=== PATIENT | female | born 1990 | race Hispanic/Latino ===

== ENCOUNTER 2021-11-16 15:00 | Inpatient (IN) | payer MEDICAID ==
[~2021-11-16] VITALS: Ht 147.3 cm; Wt 97.5 kg
[2021-11-16 15:48] LABS: BASOPHILS % (AUTO) 0.2 % (0.0-5.0); EOSINOPHILS % (AUTO) 0.7 % (0.0-8.0); HEMATOCRIT 37.4 % (36-48); LYMPHOCYTES % (AUTO) 18.1 % (21.0-51.0); MEAN CORPUSCULAR HEMOGLOBIN 27.9 pg (27.0-33.0); MEAN CORPUSCULAR HGB CONC 32.6 g/dL (32.0-36.0); MEAN CORPUSCULAR VOLUME 85.4 fL (79-99); NEUTROPHILS % (AUTO) 76.2 % (40.0-77.0); PLATELET COUNT (AUTO) 180 K/uL (130-400); RED BLOOD CELL COUNT(AUTO) 4.38 MIL/uL (4.00-5.50); RED CELL DISTRIBUTION WIDTH 15.6 % (11.0-15.5); WHITE BLOOD COUNT (AUTO) 8.8 K/uL (4.8-10.8)
[2021-11-18] MEDS ORDERED: CALDOLOR 800MG+NS 250ML 250 ML IV PRN (05:30)
[2021-11-18] MEDS ORDERED: CEFAZOLIN SODIUM 1 GM VIAL IVP PRN (05:30)
[2021-11-18] MEDS ORDERED: LACTATED RINGERS 1000ML 1,000 ML IV SCH (05:30)
[2021-11-18] MEDS ORDERED: MORPHINE PF 100MG/10ML AMP IV ONE (07:55)
[2021-11-18] MEDS ORDERED: CEFAZOLIN SODIUM 2 GM VIAL IV ONE (07:55)
[2021-11-18] MEDS ORDERED: OXYTOCIN 10 USP UNITS/ML ONE ×2 (08:16→08:34)
[2021-11-18 08:53] LABS: APPEARANCE,URINE CLOUDY (CLEAR); BILIRUBIN,URINE NEGATIVE (NEGATIVE); COLOR,URINE LIGHT-YELLOW (YELLOW); GLUCOSE, URINE (UA) NEGATIVE (NEGATIVE); KETONES,URINE NEGATIVE (NEGATIVE); LEUKOCYTE ESTERASE ,URINE 500 Leu/uL (NEGATIVE); NITRATE,URINE NEGATIVE (NEGATIVE); OCCULT BLOOD,URINE NEGATIVE (NEGATIVE); PROTEIN,URINE NEGATIVE (NEGATIVE); UROBILINOGEN,URINE 0.2 mg/dL (0.2-1.0)
[2021-11-18] MEDS ORDERED: PROMETHAZINE HCL 25 MG/ML 1ML AMPULE IM PRN (09:00)
[2021-11-18] MEDS ORDERED: MEPERIDINE-PF 75 MG/ML SYG IM PRN (09:00)
[2021-11-18] MEDS ORDERED: OXYTOCIN-LR 20 UNITS/1000 ML 1,000 ML IV PRN (09:00)
[2021-11-18] MEDS ORDERED: 0.9%NACL 10ML VIAL IVP PRN (09:00)
[2021-11-18 09:03] LABS: BACTERIA,URINE RARE /HPF (None Seen); SQUAMOUS EPITHELIAL CELL,UR MOD /HPF (0-2); YEAST,URINE BUDDING MOD /HPF (None Seen)
[2021-11-18 09:28] LABS: RAPID PLASMA REAGIN NONREACTIVE (NONREACTIVE)
[2021-11-18] MEDS ORDERED: DiphenhydrAMINE HCL 50 MG/ML VIAL IVP PRN (09:30)
[2021-11-18] MEDS ORDERED: NALOXONE HCL 0.4 MG/1 ML ML IVP PRN (09:30)
[2021-11-18] MEDS ORDERED: EPHEDRINE SULFATE 50 MG/ML AMPULE IVP PRN (09:30)
[2021-11-18] MEDS ORDERED: ONDANSETRON 4MG INJ IVP PRN (09:30)
[2021-11-18 12:11] VITALS: BP 110/56
[2021-11-18] MEDS ORDERED: PREN-196 PO (12:36)
[2021-11-18] MEDS: CALDOLOR 800MG+NS 250ML 250 ML IV SCH (16:26)
[2021-11-18 16:57] VITALS: BP 109/68
[2021-11-18 19:15] VITALS: BP 99/65
[2021-11-18] MEDS: DEXTROSE 5 %-0.45 % NACL 1,000 ML IV PRN (19:19)
[2021-11-18 22:43] VITALS: BP 91/60
[2021-11-19] MEDS: CALDOLOR 800MG+NS 250ML 250 ML IV SCH (00:58)
[2021-11-19] MEDS ORDERED: ACETAMINOPHEN WITH CODEINE 1 TAB TAB PO PRN (01:30)
[2021-11-19] MEDS ORDERED: LANOLIN 30GM OINTMENT TP PRN (01:30)
[2021-11-19] MEDS ORDERED: HYDROCODONE/ACETAMINOPHEN 5/325 MG TAB PO PRN (01:30)
[2021-11-19] MEDS ORDERED: ACETAMINOPHEN 500 MG TABLET PO PRN (01:30)
[2021-11-19] MEDS ORDERED: BISACODYL 10 MG SUPP.RECT RC PRN (01:30)
[2021-11-19 02:50] VITALS: BP 93/62
[2021-11-19] MEDS: DEXTROSE 5 %-0.45 % NACL 1,000 ML IV PRN (03:30)
[2021-11-19 06:38] LABS: HEMATOCRIT 34.2 % (36-48); MEAN CORPUSCULAR HEMOGLOBIN 27.9 pg (27.0-33.0); MEAN CORPUSCULAR HGB CONC 32.5 g/dL (32.0-36.0); MEAN CORPUSCULAR VOLUME 85.9 fL (79-99); RED BLOOD CELL COUNT(AUTO) 3.98 MIL/uL (4.00-5.50); RED CELL DISTRIBUTION WIDTH 15.5 % (11.0-15.5)
[2021-11-19 07:39] VITALS: BP 97/61
[2021-11-19] MEDS: SIMETHICONE 80 MG TAB.CHEW PO PRN ×3 (08:44→17:26)
[2021-11-19] MEDS: IBUPROFEN 800 MG TAB PO SCH ×2 (08:48→17:28)
[2021-11-19] MEDS ORDERED: DOCUSATE SODIUM 100 MG CAP PO SCH (09:00)
[2021-11-19 11:45] VITALS: BP 96/61
[2021-11-19] MEDS ORDERED: DOCU-116 PO (15:28)
[2021-11-19] MEDS ORDERED: IBUP-2077 PO (15:29)
[2021-11-19 17:21] VITALS: BP 106/56
== END 2021-11-19 18:00 | disposition home or self-care (01) | DRG 539 ==
LOC: LDH 11-18 05:08 → WSH 11-18 12:05
PROVIDERS: ADMIT Obstetrics & Gynecology; ATTEND Obstetrics & Gynecology
PROC: 10D00Z1 Extraction of Products of Conception, Low, Open Approach (ICD-10-PCS; 2021-11-18)
PROC: 0UB70ZZ Excision of Bilateral Fallopian Tubes, Open Approach (ICD-10-PCS; principal; 2021-11-18 08:00)
DX: O34.211 Maternal care for low transverse scar from previous cesarean delivery (principal); O99.824 Streptococcus B carrier state complicating childbirth; Z30.2 Encounter for sterilization; Z3A.39 39 weeks gestation of pregnancy; Z37.0 Single live birth
CPT/HCPCS: 36415; 59510; 81001; 84703; 85025; 85027; 86592; 86701; 86850; 86900; 86901; 87088; 87340; 87390; A4344; G0378; J0690; J1741; J2274; J2405; J2590; J7120